=== PATIENT | female | born 1985 | race Caucasian/White ===

== ENCOUNTER 2016-12-31 09:38 | Outpatient (CLI) | payer BC ==
[~2016-12-31 09:38] MED LIST: Sodium Chloride 0.9% 20 ML SDV FLUSH SCH
[2016-12-31] MEDS: TRASTUZUMAB IV SCH (10:20)
[2016-12-31] MEDS: SODIUM CHLORIDE 0.9% IV SCH (10:20)
[2016-12-31 10:53] VITALS: BP 107/52
[2016-12-31] MEDS: Sodium Chloride 0.9% 100 ML IV SCH (11:10)
== END 2016-12-31 11:30 | disposition home or self-care (01) ==
LOC: KA.IVTHER 09:38
PROVIDERS: ATTEND Family Medicine
DX: Z51.11 Encounter for antineoplastic chemotherapy (principal); C50.919 Malignant neoplasm of unspecified site of unspecified female breast; C77.3 Secondary and unspecified malignant neoplasm of axilla and upper limb lymph nodes; D70.1 Agranulocytosis secondary to cancer chemotherapy; T45.1X5A Adverse effect of antineoplastic and immunosuppressive drugs, initial encounter
CPT/HCPCS: 96413; J7050; J9355

== ENCOUNTER 2018-01-22 16:34 | Emergency (ER) | payer BC ==
[2018-01-22 16:41] VITALS: BP 138/82
--- NOTE | 2018-01-22 17:14 | EDM.PDOC ---
ED HPI GENERAL MEDICAL PROBLEM - General Chief Complaint: General Stated Complaint: blood in stool Time Seen by Provider: 01/22/18 17:05 Source of Information: Reports: Patient History Limitations: Reports: No Limitations - History of Present Illness INITIAL COMMENTS - FREE TEXT/NARRATIVE: Patient is a 32-year-old female who presents to the emergency department this afternoon with a complaint of blood in her stool. Patient states she first noticed blood in stool about 2 weeks ago status post right knee arthroscopic surgery. Patient didn't have any episodes after that, but this morning she did see blood in the toilet bowl after having a bowel movement. Patient does not have a history of hemorrhoids, but does have a history of breast cancer, factor 5, and constipation. Patient is on cancer medication, but not on any anticoagulation therapy. Patient denies chest pain, shortness of breath, abdominal pain, fever, nausea, vomiting, out of country travel, anal sex, or recent period. Onset: Gradual Duration: Week(s): Location: Reports: Other (Rectal) Severity: Mild Improves with: Reports: None Worsens with: Reports: None Associated Symptoms: Reports: No Other Symptoms - Related Data Allergies Allergy/AdvReac Type Severity Reaction Status Date / Time No Known Allergies Allergy Verified 01/22/18 16:36 Home Meds: Home Meds Aspirin 81 mg PO DAILY 01/22/18 [History] Calcium Carbonate [Calcium] 500 mg PO DAILY 01/22/18 [History] Tamoxifen [Nolvadex] 20 mg PO DAILY 01/22/18 [History] metFORMIN [Glucophage] 500 mg PO DAILY 01/22/18 [History] Past Medical History - Past Health History Medical/Surgical History: Denies Medical/Surgical History Gastrointestinal History: Reports: None Genitourinary History: Reports: 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: Musculoskeletal History: Reports: None Hematologic History: Reports: None Immunologic History: Reports: Immunosuppression Oncologic (Cancer) History: Reports: Breast - Past Surgical History Female Surgical History: Reports: Breast Biopsy, Breast Reconstruction, LEEP , Mastectomy Musculoskeletal Surgical History: Reports: Other (See Below) Oncologic Surgical History: Reports: Biopsy of Breast, Lumpectomy, Mastectomy Social & Family History - Tobacco Use Smoking Status *Q: Never Smoker Second Hand Smoke Exposure: No - Caffeine Use Caffeine Use: Reports: Coffee - Alcohol Use Days Per Week of Alcohol Use: 0 - Recreational Drug Use Recreational Drug Use: No ED ROS GENERAL - Review of Systems Review Of Systems: ROS reveals no pertinent complaints other than HPI. Constitutional: Reports: No Symptoms HEENT: Reports: No Symptoms Respiratory: Reports: No Symptoms Cardiovascular: Reports: No Symptoms Endocrine: Reports: No Symptoms GI/Abdominal: Reports: No Symptoms, Hematochezia : Reports: No Symptoms Musculoskeletal: Reports: No Symptoms Skin: Reports: No Symptoms Neurological: Reports: No Symptoms Psychiatric: Reports: No Symptoms Hematologic/Lymphatic: Reports: No Symptoms Immunologic: Reports: No Symptoms ED EXAM, GENERAL - Physical Exam Exam: See Below Exam Limited By: No Limitations General Appearance: Alert, WD/WN, No Apparent Distress Nose: Normal Inspection, Normal Mucosa, No Blood Throat/Mouth: Normal Inspection, Normal Oropharynx, No Airway Compromise Head: Atraumatic, Normocephalic Neck: Normal Inspection Respiratory/Chest: No Respiratory Distress, Lungs Clear, Normal Breath Sounds, No Accessory Muscle Use, Chest Non-Tender Cardiovascular: Regular Rate, Rhythm, No Murmur GI/Abdominal: Normal Bowel Sounds, Soft, Non-Tender, No Organomegaly, No Distention, No Abnormal Bruit, No Mass (Female) Exam: Normal External Exam Rectal (Female) Exam: Normal Exam, Normal Rectal Tone, Heme + Stool, Other ( Bright red blood on stool sample). No: Decreased Rectal Tone, Fecal Impaction, Heme - Stool, Hemorrhoids, Mass, Perirectal Abscess Back Exam: Normal Inspection. No: CVA Tenderness (L), CVA Tenderness (R) Extremities: Normal Inspection Neurological: Alert, Oriented, Normal Cognition Psychiatric: Normal Affect, Normal Mood Skin Exam: Warm, Dry, Intact, Normal Color, No Rash Lymphatic: No Adenopathy Course - Vital Signs Last Recorded V/S: Last Vital Signs Temp 98.3 F 01/22/18 16:40 Pulse 66 01/22/18 16:40 Resp 16 01/22/18 16:40 BP 138/82 01/22/18 16:40 Pulse Ox 100 01/22/18 16:40 - Orders/Labs/Meds Orders: Active Orders 24 hr Category Date Time Status CBC WITH AUTO DIFF [HEME] Stat Lab 01/22/18 16:48 Ordered COMPREHENSIVE METABOLIC PN,CMP [CHEM] Stat Lab 01/22/18 16:48 Ordered Hemoccult [OCCULT BLOOD DIAGNOSTIC] [OP] Stat Lab 01/22/18 17:06 Ordered INR,PT,PROTHROMBIN TIME [COAG] Stat Lab 01/22/18 16:48 Ordered - Re-Assessments/Exams Free Text/Narrative Re-Assessment/Exam: 01/22/18 17:42 Patient is afebrile, nontoxic appearing, vital signs stable. Discussed patient having CAT scan with oral and IV contrast here. The patient felt that she would like to have the CT and consideration for colonoscopy in [facility] by a poultry inspector. Patient will contact her cancer doctor in [place] on Wednesday. She will return to emergency department if abdominal pain or bleeding continues or worsens. Departure - Departure Time of Disposition: 17:44 Disposition: Home, Self-Care 01 Condition: Good Clinical Impression: Rectal bleed - Discharge Information Instructions: Gastrointestinal Bleeding, Rectal Bleeding, [id number] Additional Instructions: Follow-up in next 2-3 days with poultry inspector as discussed. Return to emergency department sooner if symptoms continue or worsen. - My Orders Last 24 Hours: My Active Orders 01/22/18 16:48 CBC WITH AUTO DIFF [HEME] Stat COMPREHENSIVE METABOLIC PN,CMP [CHEM] Stat INR,PT,PROTHROMBIN TIME [COAG] Stat 01/22/18 17:06 Hemoccult [OCCULT BLOOD DIAGNOSTIC] [OP] Stat - Assessment/Plan Last 24 Hours: My Active Orders 01/22/18 16:48 CBC WITH AUTO DIFF [HEME] Stat COMPREHENSIVE METABOLIC PN,CMP [CHEM] Stat INR,PT,PROTHROMBIN TIME [COAG] Stat 01/22/18 17:06 Hemoccult [OCCULT BLOOD DIAGNOSTIC] [OP] Stat
[2018-01-22 17:34] LABS: CHLORIDE,CL 102 mmol/L (98-115); SODIUM,NA 138 mmol/L (136-145)
== END 2018-01-22 18:00 | disposition home or self-care (01) ==
LOC: KA.ED 16:34
DX: K62.5 Hemorrhage of anus and rectum (principal); C50.919 Malignant neoplasm of unspecified site of unspecified female breast; D68.2 Hereditary deficiency of other clotting factors; Z79.899 Other long term (current) drug therapy; Z79.82 Long term (current) use of aspirin; Z79.84 Long term (current) use of oral hypoglycemic drugs
CPT/HCPCS: 36415; 80053; 82272; 85025; 85610; 99283

== ENCOUNTER 2019-11-10 03:03 | Emergency (ER) | payer BC ==
[2019-11-10] MEDS ORDERED: Sodium Chloride 0.9% 10 ML Syringe FLUSH PRN (03:30)
[2019-11-10] MEDS ORDERED: Sodium Chloride 0.9% 1,000 ML IV ONE (03:30)
--- NOTE | 2019-11-10 03:30 | EDM.PDOC ---
ED HPI GENERAL MEDICAL PROBLEM - General Chief Complaint: Abdominal Pain Stated Complaint: Abdominal pain Time Seen by Provider: 11/10/19 03:20 Source of Information: Reports: Patient History Limitations: Reports: No Limitations - History of Present Illness INITIAL COMMENTS - FREE TEXT/NARRATIVE: 34 YO WF with PMH of breast CA and tram flap surgery presents to ER complaining of suprapubic pain which began suddenly after urinating this am. Pt reports she woke to void and developed suprapubic discomfort and dysuria. Pt reports she felt nauseated but didn't vomit. Pt denies fever/chills, or back pain. Pt states she is comfortable as long as she doesn't move. Pt reports she is s/p appendectomy. Pt denies any rectal bleeding or pain on bowel movement. Pt denies urinary frequency, urgency or hematuria. Onset: Sudden Onset Date: 11/10/19 Onset Time: 02:00 Location: Reports: Abdomen Quality: Reports: Sharp Severity: Moderate Improves with: Reports: Rest Worsens with: Reports: Movement Associated Symptoms: Reports: No Other Symptoms, Nausea/Vomiting Lower Abdomen Pain Score (Numeric/FACES): 7 - Related Data Allergies Allergy/AdvReac Type Severity Reaction Status Date / Time No Known Drug Intolerances Allergy Cannot Verified 11/10/19 03:09 Remember Home Meds: Home Meds Aspirin 81 mg PO DAILY 01/22/18 [History] Calcium Carbonate [Calcium] 500 mg PO DAILY 01/22/18 [History] Tamoxifen [Nolvadex] 20 mg PO DAILY 01/22/18 [History] metFORMIN [Glucophage] 1,000 mg PO DAILY 01/22/18 [History] traMADol [Ultram] 50 mg PO Q6H PRN #10 tab 11/10/19 [Rx] Past Medical History - Past Health History Medical/Surgical History: Denies Medical/Surgical History Gastrointestinal History: Reports: None Genitourinary History: Reports: 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 History: Reports: None Hematologic History: Reports: None Immunologic History: Reports: Immunosuppression Oncologic (Cancer) History: Reports: Breast - Past Surgical History Head Surgeries/Procedures: Reports: None Female Surgical History: Reports: Breast Biopsy, Breast Reconstruction, LEEP , Mastectomy Musculoskeletal Surgical History: Reports: Other (See Below) Oncologic Surgical History: Reports: Biopsy of Breast, Lumpectomy, Mastectomy Social & Family History - Caffeine Use Caffeine Use: Reports: Coffee ED ROS GENERAL - Review of Systems Review Of Systems: See Below Constitutional: Reports: No Symptoms HEENT: Reports: No Symptoms Respiratory: Reports: No Symptoms Cardiovascular: Reports: No Symptoms Endocrine: Reports: No Symptoms GI/Abdominal: Reports: Abdominal Pain, Nausea : Reports: Dysuria, Pain Musculoskeletal: Reports: No Symptoms Skin: Reports: No Symptoms Neurological: Reports: No Symptoms Psychiatric: Reports: No Symptoms Hematologic/Lymphatic: Reports: No Symptoms Immunologic: Reports: No Symptoms ED EXAM, GI/ABD - Physical Exam Exam: See Below Exam Limited By: No Limitations General Appearance: Alert, WD/WN, No Apparent Distress Throat/Mouth: Normal Inspection, Normal Lips, Normal Teeth, Normal Gums, Normal Oropharynx, Normal Voice, No Airway Compromise Head: Atraumatic, Normocephalic Neck: Normal Inspection, Supple, Non-Tender, Full Range of Motion Respiratory/Chest: No Respiratory Distress, Lungs Clear, Normal Breath Sounds, No Accessory Muscle Use, Chest Non-Tender Cardiovascular: Normal Peripheral Pulses, Regular Rate, Rhythm, No Edema, No Gallop, No JVD, No Murmur, No Rub GI/Abdominal Exam: Normal Bowel Sounds, Soft, No Organomegaly, No Distention, No Abnormal Bruit, No Mass, Pelvis Stable, Tender (suprapubic pain on palpation) Back Exam: Normal Inspection, Full Range of Motion, NT Extremities: Normal Inspection, Normal Range of Motion, Non-Tender, Normal Capillary Refill, No Pedal Edema Neurological: Alert, Oriented, CN II-XII Intact, Normal Cognition, Normal Gait, Normal Reflexes, No Motor/Sensory Deficits Psychiatric: Normal Affect, Normal Mood Skin Exam: Warm, Dry, Intact, Normal Color, No Rash Lymphatic: No Adenopathy Course - Vital Signs Last Recorded V/S: Last Vital Signs Temp 36.3 C 11/10/19 03:04 Pulse 58 L 11/10/19 03:04 Resp 18 11/10/19 03:04 BP 115/45 L 11/10/19 03:04 Pulse Ox 98 11/10/19 03:04 - Orders/Labs/Meds Orders: Active Orders 24 hr Category Date Time Status Peripheral IV Care [RC] . DIRECTED Care 11/10/19 03:30 Active Abdomen Pelvis w Cont [CT] Stat Exams 11/10/19 03:59 Ordered COMPREHENSIVE METABOLIC PN,CMP [CHEM] Stat Lab 11/10/19 03:30 Ordered HCG QUALITATIVE,SERUM [CHEM] Stat Lab 11/10/19 03:30 Ordered LIPASE [CHEM] Stat Lab 11/10/19 03:30 Ordered Sodium Chloride 0.9% [Normal Saline] 1,000 ml Med 11/10/19 03:30 Active IV .BOLUS Sodium Chloride 0.9% [Saline Flush] Med 11/10/19 03:30 Active 10 ml FLUSH Q8HR PRN Peripheral IV Insertion Adult [OM.PC] Routine Oth 11/10/19 03:30 Ordered Medication Orders Sodium Chloride (Normal Saline) 1,000 mls @ 999 mls/hr IV .BOLUS ONE Stop: 11/10/19 04:30 Last Admin: 11/10/19 03:54 Dose: 999 mls/hr Sodium Chloride (Saline Flush) 10 ml FLUSH Q8HR PRN PRN Reason: keep vein open Labs: Laboratory Tests 11/10/19 11/10/19 Range/Units 03:10 03:40 WBC 5.47 (5.00-10.00) 10^3/uL RBC 3.98 (3.80-5.50) 10^6/uL Hgb 12.7 (12.0-16.0) g/dL Hct 37.2 (37.0-47.0) % MCV 93.5 H (82.0-92.0) fL MCH 31.9 H (27.0-31.0) pg MCHC 34.1 (32.0-36.0) g/dL RDW 12.6 (11.5-14.5) % Plt Count 205 (150-400) 10^3/uL MPV 8.8 (7.4-10.4) fL Immature Gran % (Auto) 0.2 (0.0-5.0) % Neut % (Auto) 57.1 (50.0-70.0) % Lymph % (Auto) 31.3 (20.0-40.0) % [facility] % (Auto) 9.7 H (2.0-8.0) % Eos % (Auto) 1.3 (1.0-3.0) % Baso % (Auto) 0.4 (0.0-1.0) % Immature Gran # (Auto) 0.01 (0.00-0.50) 10^3/uL Neut # (Auto) 3.13 (2.50-7.00) 10^3/uL Lymph # (Auto) 1.71 (1.00-4.00) 10^3/uL [facility] # (Auto) 0.53 (0.10-0.80) 10^3/uL Eos # (Auto) 0.07 L (0.10-0.30) 10^3/uL Baso # (Auto) 0.02 (0.00-0.10) 10^3/uL Specimen Type Urinvoid Urine Color Yellow (YELLOW) Urine Appearance Slightly cloudy H (CLEAR) Urine pH 5.5 (5.0-9.0) Ur Specific [place] 1.020 (1.005-1.030) Urine Protein Negative (NEGATIVE) mg/dL Urine Glucose (UA) Negative (NEGATIVE) mg/dL Urine Ketones Negative (NEGATIVE) mg/dL Urine Occult Blood Negative (NEGATIVE) Urine Nitrite Negative (NEGATIVE) Urine Bilirubin Negative (NEGATIVE) Urine Urobilinogen 0.2 (0.2-1.0) E.U./dL Ur Leukocyte Esterase Negative (NEGATIVE) Urine RBC 0-5 (0-5) /HPF Urine WBC 5-10 H (0-5) /HPF Ur Epithelial Cells Moderate H /LPF Urine Bacteria Moderate H (NONE TO FEW) /HPF Meds: Medications Generic Name Dose Route Start Last Admin Trade Name Freq PRN Reason Stop Dose Admin Sodium Chloride 1,000 mls @ 999 mls/hr 11/10/19 03:30 11/10/19 03:54 Normal Saline IV 11/10/19 04:30 999 mls/hr .BOLUS ONE Administration Sodium Chloride 10 ml 11/10/19 03:30 Saline Flush FLUSH Q8HR PRN keep vein open Discontinued Medications Generic Name Dose Route Start Last Admin Trade Name Freq PRN Reason Stop Dose Admin Ketorolac Tromethamine 30 mg 11/10/19 03:42 11/10/19 03:55 Toradol IVPUSH 11/10/19 03:43 30 mg ONETIME ONE Administration - Radiology Interpretation Free Text/Narrative:: CT abd/pelvis- left ovarian cyst with mild amount of pelvic free fluid - Re-Assessments/Exams Free Text/Narrative Re-Assessment/Exam: 11/10/19 05:24 Pt reports pain improved with Toradol and IVF. Pt offered additional pain medication which she refused. Will discharge with recommendations to follow up with PCP for pelvic U/S as outpatient and further evaluation and treatment. Departure - Departure Time of Disposition: 05:25 Disposition: Home, Self-Care 01 Condition: Good Clinical Impression: Ovarian cyst Qualifiers: Laterality: right Qualified Code(s): N83.201 - Unspecified ovarian cyst, right side - Discharge Information Prescriptions: traMADol [Ultram] 50 mg PO Q6H PRN #10 tab PRN Reason: Pain Instructions: Ovarian Cyst Referrals: Idalia Estrada MD [Physician] - Forms: ED Department Discharge Additional Instructions: 1. discharge home 2. motrin 600mg every 6 hours x 5 days 3. Ultram 50mg Q4-6 hours as needed for pain 4. follow up with PCP for further evaluation and treatment- consider pelvic ultrasound as outpatient within 6 weeks 5. return to ER for worsening symptoms Sepsis Event Note - Evaluation Sepsis Screening Result: No Definite Risk - Focused Exam Vital Signs: Vital Signs Temp Pulse Resp BP Pulse Ox 11/10/19 03:04 36.3 C 58 L 18 115/45 L 98 Date Exam was Performed: 11/10/19 Time Exam was Performed: 04:09 - My Orders Last 24 Hours: My Active Orders 11/10/19 03:30 Peripheral IV Care [RC] . DIRECTED COMPREHENSIVE METABOLIC PN,CMP [CHEM] Stat HCG QUALITATIVE,SERUM [CHEM] Stat LIPASE [CHEM] Stat Sodium Chloride 0.9% [Normal Saline] 1,000 ml IV .BOLUS Sodium Chloride 0.9% [Saline Flush] 10 ml FLUSH Q8HR PRN Peripheral IV Insertion Adult [OM.PC] Routine 11/10/19 03:59 Abdomen Pelvis w Cont [CT] Stat - Assessment/Plan Last 24 Hours: My Active Orders 11/10/19 03:30 Peripheral IV Care [RC] . DIRECTED COMPREHENSIVE METABOLIC PN,CMP [CHEM] Stat HCG QUALITATIVE,SERUM [CHEM] Stat LIPASE [CHEM] Stat Sodium Chloride 0.9% [Normal Saline] 1,000 ml IV .BOLUS Sodium Chloride 0.9% [Saline Flush] 10 ml FLUSH Q8HR PRN Peripheral IV Insertion Adult [OM.PC] Routine 11/10/19 03:59 Abdomen Pelvis w Cont [CT] Stat Assessment:: 1. Left ovarian cyst with mild free fluid Plan: 1. discharge home 2. motrin 600mg every 6 hours x 5 days 3. Ultram 50mg Q4-6 hours as needed for pain 4. follow up with PCP for further evaluation and treatment- consider pelvic ultrasound as outpatient within 6 weeks 5. return to ER for worsening symptoms
[2019-11-10] MEDS ORDERED: Ketorolac 30 MG/ML SDV IVPUSH ONE (03:42)
[2019-11-10 04:16] LABS: CHLORIDE,CL 104 mmol/L (98-115); SODIUM,NA 140 mmol/L (136-145)
[2019-11-10] MEDS ORDERED: Iopamidol 755 Mg/ML 100 ML Bottle IV ONE (04:26)
[2019-11-10] MEDS ORDERED: Sodium Chloride 0.9% 50 ML IV SCH (04:30)
[2019-11-10 04:46] VITALS: BP 142/69; PULSE 72
--- NOTE | 2019-11-10 07:53 | CT ---
[id number] CT/CT Abdomen Pelvis W IV EXAM: ABDOMEN AND PELVIS CT WITH CONTRAST INDICATION: LOWER ABDOMINAL PAIN X2 HOURS COMPARISON: February 27, 2014. DISCUSSION: 20 mm left ovarian follicle. The small amount of free fluid in the pelvis and trace free fluid in the right abdomen may relate to rupture of the follicle. The distal small bowel has a few mildly fluid-filled loops which could be seen in the context of recent fluid ingestion or a mild ileus. The appendix is surgically absent. Small fat-containing umbilical hernia. A couple of small fluid density structures in the left retroperitoneum are unchanged and compatible with benign etiology. The largest is about 14 x 13 mm. The liver, gallbladder, spleen, pancreas, adrenal glands, kidneys and large bowel are normal in appearance. No free fluid. The osseous structures are unremarkable. IMPRESSION: 1. Fluid-filled nondilated distal small bowel could relate to a mild ileus or recent fluid ingestion. 2. Small free fluid in the pelvis is nonspecific, but likely physiologic and potentially related to rupture of a left ovarian follicle. Chidi Brown MD 11/10/19 0752 Thank you for allowing us to participate in the care of your patient.
== END 2019-11-10 05:35 | disposition home or self-care (01) ==
LOC: KA.ED 03:03
DX: N83.201 Unspecified ovarian cyst, right side (principal); N83.202 Unspecified ovarian cyst, left side; Z79.82 Long term (current) use of aspirin; Z79.899 Other long term (current) drug therapy
CPT/HCPCS: 74177; 80053; 81001; 83690; 84703; 85025; 96360; 99284; J1885; J7030; J7050; Q9967

== ENCOUNTER 2022-05-25 07:40 | Day surgery (SDC) | payer BC ==
[2022-05-25] MEDS ORDERED: Glycopyrrolate 0.2 MG/ML SDV ONE (07:41)
[2022-05-25] MEDS ORDERED: Midazolam 1 MG/ML 2 ML SDV IV ONE (07:41)
[2022-05-25] MEDS ORDERED: Sodium Chloride 0.9% 10 ML Syringe FLUSH PRN (07:45)
[2022-05-25] MEDS: Lactated Ringers 1,000 ML IV SCH (08:22)
[2022-05-25] MEDS ORDERED: Lidocaine 2% 5 ML SDV ONE (08:33)
[2022-05-25] MEDS ORDERED: Midazolam 1 MG/ML 2 ML SDV ONE ×2 (08:33→08:35)
[2022-05-25] MEDS ORDERED: Propofol 200 MG/20 ML SDV ONE (08:33)
[2022-05-25 09:47] VITALS: PULSE 57
[2022-05-25 10:03] VITALS: BP 107/68
== END 2022-05-25 10:55 | disposition home or self-care (01) ==
LOC: KA.SDS 07:40
PROVIDERS: ATTEND Family Medicine
DX: K29.50 Unspecified chronic gastritis without bleeding (principal); M79.2 Neuralgia and neuritis, unspecified; E66.9 Obesity, unspecified; Z68.32 Body mass index [BMI] 32.0-32.9, adult
CPT/HCPCS: 00731; 81025; J2250; J2704; J3490; J7120

== ENCOUNTER 2025-07-21 08:30 | Emergency (ER) | payer BC ==
[2025-07-21 10:23] VITALS: BP 136/81; PULSE 90
== END 2025-07-21 09:58 | disposition home or self-care (01) ==
LOC: KA.ED 08:30
DX: J02.9 Acute pharyngitis, unspecified (principal); Z79.899 Other long term (current) drug therapy; Z90.49 Acquired absence of other specified parts of digestive tract
CPT/HCPCS: 87651; 99283